=== PATIENT | female | born 2000 | race Caucasian/White ===

== ENCOUNTER 2020-03-26 12:20 | Outpatient (CLI) | payer OTHER, SELFPAY ==
[2020-03-26 12:49] LABS: SARS-CoV-2 Ag Negative (Negative)
== END 2020-03-26 12:21 | disposition home or self-care (01) ==
LOC: CHSLAB 12:22
PROVIDERS: PCP Physician Assistant; Visit Provider Physician Assistant
DX: J00 Acute nasopharyngitis [common cold] (principal); Z20.822 Contact with and (suspected) exposure to COVID-19
CPT/HCPCS: 87426; C9803

== ENCOUNTER 2020-04-08 08:00 | Outpatient (RCR) | payer OTHER, SELFPAY ==
--- NOTE | 2020-04-01 16:34 | PTOPEVAL ---
INITIAL PHYSICAL THERAPY EVALUATION and PLAN OF CARE Thank you for referring Fartun Emerson to [facility] [place] Nella is scheduled to be seen for physical therapy? 1x/week for 6 weeks. Please review, sign, date and return this plan of care SHARAD. I agree with and certify that the following plan of care is medically necessary. Referring Physician Date Admitting Provider: Attending Provider: Cely Burgos MD Assessment Status Evaluation Outpatient Past Medical History Past Medical History No Past Medical/Surgical History Patient/Family Denies Significant Past Medical/ Surgical History Source of Past Medical History Patient Diagnosis pelvic and perineal pain Onset September 2019 Subjective Information Began to have lower abdominal Query Text:As Reported By Patient/ pain - thought she may have a Family ovarian cysts - when she had exam - MIXOLOGIST felt tighter muscles With intercourse - did notice some tearing at introitus - not as comfortable as in past - tender posterior aspect of pubic bone Depo - using for control - no real menstrual cycle - every 3 months, decreased sexual drive Doesn't want to use IUD or inserted bar type of control Prior Level of Function Activity Level (Last 3 Months) Occupation student Hand [employer] Medications Home Meds (Include: OTC, RX, Vitamins, Depo - for control - no Herbals, Dose, Route,and Frequency) menstrual cycle Query Text:Home Med Entries Will No Longer Recall From Past Visits. Home Meds Must Be Re-entered With Each Visit. Comments Additional Prior Level of Function recreation - art, going to gym Comments works at [employer] Pain Assessment Self Report Pain Assessment Lower Vagina Reported Pain Level 0 Pain Description Sharp Lowest Pain Intensity 0 Greatest Pain Intensity 7 Lumbar ROM Lumbar ROM WNL Normal Lumbar Segmental Motion Yes Lumbar Comments negative standing flexion test Posture Posture Standing Position Posture Evaluation View posterior, anterior, lateral Head/C-Spine Posture Forward Head Thoracic Spine Posture Neutral Lumbar Spine Posture Neutral Scapula Posture (L) Neutral,(R) Neutral Pelvis Posture Neutral Weight Distribution Balanced
--- NOTE | 2020-04-15 15:59 | PCPTNOTE ---
Patient called & cancelled scheduled appointment this date due to weather.
--- NOTE | 2020-04-22 16:36 | PCPTNOTE ---
PHYSICAL THERAPY DISCHARGE SUMMARY Admitting Provider: Attending Provider: Cely Burgos MD Patient:Fartun Emerson Date of :2000 Fartun (Tracee) has not returned for any further treatments since 04/08/2020, therefore she will be discharged at this time. Tracee did call to cancel the remaining appointments due to feeling that there was too much internal work being done. She did not let me know this, otherwise I would have adapted her treatment program accordingly. Patient?s initial visit was on 04/01/2020 13:30 and (he/she) had a total of 2 visits. The goals have not been met. Thank you for referring Tracee to [facility]. Please review, sign, date and return this discharge summary SHARAD. I have been updated about Tracee's current status and I agree with discharge from the above service at this time. Referring Physician Date
== END 2020-04-23 08:40 | disposition home or self-care (01) ==
LOC: ANHPT 08:00
PROVIDERS: PCP Physician Assistant; Referring Provider Obstetrics & Gynecology; Visit Provider Obstetrics & Gynecology
DX: R10.2 Pelvic and perineal pain (principal)
CPT/HCPCS: 97140; 97161

== ENCOUNTER 2021-08-04 10:35 | Emergency (ER) | payer SELFPAY ==
[2021-08-04 10:47] VITALS: BP 115/70; PULSE 69; RESP 16; TEMP 36.6; O2SAT 100
--- NOTE | 2021-08-04 11:02 | PC.NURSE ---
patient denies HI and HI thougts
--- NOTE | 2021-08-04 11:46 | ED.ANXIETY ---
HPI - Anxiety General Chief Complaint: Anxiety Stated Complaint: anxiety Time Seen by Provider: 08/04/21 11:21 History of Present Illness HPI narrative: 20-year-old female presents the emergency room with sudden onset of anxiety attack. Patient states that she was hyperventilating and developed chest pain approximately 2 hours prior to arrival. Patient states that while she was in the room her symptoms resolved. Patient states she is got a history of anxiety disorder, and has recently restarted Prozac over the last. Patient states that she does not have abortive medication for her anxiety attacks. Patient also states that she has a appointment with her primary care physician at 430 later today to discuss her panic attacks. Presently patient has no complaints. Related Data Allergies Allergy/AdvReac Type Severity Reaction Status Date / Time buspirone Allergy Seizure Verified 08/04/21 11:03 amoxicillin AdvReac Unknown emesis Verified 08/04/21 11:03 clavulanic acid AdvReac Unknown emesis Verified 08/04/21 11:03 Review of Systems Review of Systems: CONSTITUTIONAL: Denies fever, chills, or sweats. EYES: Denies visual changes, redness, or discharge. ENT: Denies rhinorrhea, congestion, sore throat, or otalgia. CARDIOVASCULAR: Denies chest pain, palpitations, or edema. RESPIRATORY: Denies cough or dyspnea. GASTROINTESTINAL: Denies abdominal pain, nausea, vomiting, or diarrhea. GENITOURINARY: Denies dysuria or hematuria. SKIN: Denies rash or itching. MUSCULOSKELETAL: Denies back pain, joint pain, or myalgia. NEUROLOGIC: Denies headache, numbness, dizziness, or weakness. PSYCHIATRIC: Reports anxiety Exam Narrative: GENERAL: Well-appearing, well-nourished, and in no acute distress. HEAD: Normocephalic, atraumatic. EYES: PERRLA and EOMI. CHEST: Clear to auscultation. No respiratory distress. No wheezes rales or rhonchi HEART: Regular rate and rhythm. No murmur heard. Normal peripheral pulses. ABDOMEN: Soft, nontender, nondistended, normal active bowel sounds. EXTREMITIES: Normal range of motion. No edema. SKIN: Warm, dry, no rash. NEURO: No focal deficits. Alert and oriented x3. PSYCH: Anxious. Course Vital Signs Vital signs: Vital Signs Temperature 36.6 C 08/04/21 10:47 Pulse Rate 69 08/04/21 10:47 Respiratory Rate 16 08/04/21 10:47 Blood Pressure 115/70 08/04/21 10:47 Pulse Oximetry 100 08/04/21 10:47 Oxygen Delivery Room Air 08/04/21 10:47 Temperature 36.6 C 08/04/21 10:47 Pulse Rate 69 08/04/21 10:47 Respiratory Rate 16 08/04/21 10:47 Blood Pressure 115/70 08/04/21 10:47 Pulse Oximetry 100 08/04/21 10:47 Oxygen Delivery Room Air 08/04/21 10:47 Discharge Plan Discharge Clinical Impression: Acute anxiety Patient Disposition: Home, Self-Care Condition: Stable Instructions: Antibiotic Form Follow-up/Referrals: Lindsey,AAYUSH Wheeler [Primary Care Provider] - Stand Alone Forms: Work/School Release IP Time of Disposition: 11:50
[2021-08-04] MEDS: LORazepam (*CRX) 0.5 MG TABLET PO (11:51)
== END 2021-08-04 12:00 | disposition home or self-care (01) ==
PROVIDERS: Emergency Provider Nurse Practitioner Family; PCP Physician Assistant
DX: F41.9 Anxiety disorder, unspecified (principal)
CPT/HCPCS: 99283; A9270